=== PATIENT | female | born 2000 | race Caucasian/White ===

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

== ENCOUNTER 2020-09-28 13:34 | Emergency (ER) | payer OTHER ==
[~2020-09-28] VITALS: Ht 157.5 cm; Wt 106.6 kg
[2020-09-28 13:36] VITALS: BP 135/83
--- NOTE | 2020-09-28 13:48 | NUR ---
PATIENT BIB SELF FOR C/O FIBER GLASS IN BILATERAL HANDS. PATIENT REPORTS SHE WAS REACHING UP ON A SHELF IN HER GARAGE WHEN SHE GRABBED AN ITEM WITH BOTH HANDS THAT HAD "BROKEN FIBER GLASS" ON IT. PATIENT REPORTS TRYING TO REMOVE THE FIBER GLASS WITH DUCT TAPE AND LINT ROLLER WITHOUT RELIEF. PATIENT DENIES PAIN AT THIS TIME. NO NOTED SWELLING OR BLEEDING TO HANDS. SEE COMPLETE ASSESSMENT FOR FURTHER DETAILS. MED HX: ASTHMA ALLERGIES: NKA
--- NOTE | 2020-09-28 13:52 | NUR ---
SANTIAGO LOPEZ AT BEDSIDE PERFORMING ASSESSMENT.
--- NOTE | 2020-09-28 14:16 | NUR ---
SANTIAGO LOPEZ AT BEDSIDE ATTEMPTING TO REMOVE FIBER GLASS FROM PATIENTS HAND.
[2020-09-28 14:50] VITALS: BP 135/83
--- NOTE | 2020-09-28 14:50 | NUR ---
Patient discharged with v/s stable. Written and verbal after care instructions given and explained. Patient verbalized understanding. Ambulatory with steady gait. All questions addressed prior to discharge. Advised to follow up with PMD.
== END 2020-09-28 14:50 | disposition home or self-care (01) ==
LOC: MED 13:34
DX: S60.552A Superficial foreign body of left hand, initial encounter (principal); S60.551A Superficial foreign body of right hand, initial encounter; J45.909 Unspecified asthma, uncomplicated; Z79.899 Other long term (current) drug therapy; Z90.49 Acquired absence of other specified parts of digestive tract; W45.8XXA Other foreign body or object entering through skin, initial encounter; Y93.89 Activity, other specified; Y92.89 Other specified places as the place of occurrence of the external cause; Y99.8 Other external cause status
CPT/HCPCS: 99284